=== PATIENT | female | born 1950 | race Caucasian/White ===

== ENCOUNTER 2023-06-29 07:22 | Observation (INO) ==
[2023-06-29] MEDS ORDERED: ASPIRIN CHEWABLE PO ONE (07:34)
[2023-06-29] MEDS ORDERED: CORDARONE IVP STA (07:34)
[2023-06-29 07:46] LABS: BASOPHILS % (AUTO) 0.5 % (0.0-3.0); EOSINOPHILS % (AUTO) 0.1 % (0.0-7.0); HEMATOCRIT 38.8 % (37.0-47.0); HEMOGLOBIN 12.7 g/dl (12.0-16.0); IMMATURE GRANULOCYTE % (AUTO) 0.2 % (0.0-5.0); LYMPHOCYTES # (AUTO) 0.9 K/uL (0.60-3.4); LYMPHOCYTES % (AUTO) 9.7 (10.0-50.0); MEAN CORPUSCULAR HEMOGLOBIN 29.8 pg (27.0-31.0); MEAN CORPUSCULAR HGB CONC 32.7 (31.8-35.4); MEAN CORPUSCULAR VOLUME 91.1 fl (81.0-99.0); MONOCYTES # (AUTO) 1.1 K/uL (0.4-2.0); MONOCYTES % (AUTO) 12.4 (0-10); NEUTROPHILS # (AUTO) 6.9 K/ul (2.0-6.9); NEUTROPHILS % (AUTO) 77.1 % (42.2-75.2); PLATELET COUNT 216 10^3/uL (140-440); RDW COEFFICIENT OF VARIATION 12.8 % (11.6-14.8); RED BLOOD COUNT 4.26 10^6/ul (4.20-5.40); WHITE BLOOD COUNT 8.88 K/ul (4.6-10.2)
--- NOTE | 2023-06-29 07:58 | ED.PDOC ---
General ED Provider: Dr. JUSTEN ESPINOZA MD Chief Complaint: Palpitations Stated Complaint: CC: Palpitations. Had cold symptoms in the past day with temp of 100, ? chills, bad headaches and nasal congestion. No sore throat. Took some cold decongestant medicine and woke up at 0200 with intermittent palpitations . No chest pain. Cough is mild and non-productive. No SOB. KIDD much better now. No Flu and COVID vaccine. had R carotid surgery in the past year or so on the R side, with L side < 50%. Hx of remote SVT but no formal testing. She is on Plavix after the carotid surgery. Had stress test and heart cath maybe 20 years ago and was told "she had the heart of a 15 yo". Time Seen by Provider: 06/29/23 07:25 Mode of Arrival: Walk-In Information Source: Patient Exam Limitations: No limitations Primary Care Provider: RIGOBERTO GARDNER Referred to ED by: Other (self) Nursing and Triage Documentation Reviewed and Agree: Yes What is Opioid Naive?: *Opioid Naive implies the patient is not already taking opioids or not chronically receiving opioids on a daily basis. *PRN dosing is not "usually" associated with tolerance. *Patients are at higher risk of over-sedation and aspiration. What is Opioid Tolerant?: *Opioid Tolerance implies less than the expected response to an opioid. *Acquired tolerance is defined by the patient taking 60mg of oral morphine daily (or equianalgesic dose of another opioid) for 1 week or more. *Often associated with chronic pain. *May take more than usual dose to achieve desired pain control. Review of Systems Review Of Systems Constitutional: Reports Chills and Fever Eyes: Reports No symptoms and Photophobia Ears, Nose, Mouth, Throat: Reports Nose discharge; Denies Ear pain, Ear discharge, Throat pain or Throat swelling Respiratory: Reports Cough; Denies Shortness of Breath or Wheezing Cardiac: Reports Irregular heart rate and Palpitations; Denies Syncope GI: Reports No symptoms : Reports No symptoms Musculoskeletal: Reports No symptoms Skin: Reports No symptoms Neurological: Reports Headache Endocrine: Reports No symptoms [facility] Medical History (Updated 06/29/23 @ 09:57 by JUSTEN ESPINOZA MD) Cataract H26.9 - Unspecified cataract (ICD-10) Elevated cholesterol with elevated triglycerides E78.2 - Mixed hyperlipidemia (ICD-10) Family History (Updated 10/17/20 @ 08:43 by ELISABETH VELASQUEZ) Mother Cancer FATHER Cancer Surgical History (Updated 10/17/20 @ 08:51 by AUSTIN LOTT) History of cataract surgery Z98.49 - Cataract extraction status, unspecified eye (ICD-10) Female Reproductive History Menstrual Hx Hysterectomy: No Hx Tubal Ligation: No Physical Exam Physical Exam Appearance: Reports Ill-appearing Ill-appearing: Mild Pain Distress: None Eyes: Reports BRENDAN and EOMI ENT: Reports Oropharynx normal Neck: Supple Respiratory: Reports Airway patent, Breath sounds clear, Breath sounds equal and Respirations nonlabored; Denies Breath sounds diminished or Wheezes Cardiovascular: Reports Pulses normal, Irregular rhythm and Other (in and out of AFib with rate up t0 190, and NSR with PAC) GI/: Reports Soft, Nontender, No masses, Bowel sounds normal and No Organomegaly Musculoskeletal: Reports Normal strength, ROM intact, No edema and No calf tenderness Skin: Reports Warm, Dry and Normal color Neurological: Reports Sensation intact, Motor intact, Reflexes intact and Cranial nerves intact Psychiatric: Reports Affect appropriate and Mood appropriate; Denies Anxious Interpretation EKG Interpretation EKG Interpretation By: ED Physician Time of EKG #1: 07:39 Rate: Tachy Rhythm: Sinus Ectopy: PACs [place]: NL ST Segment: Other (repolarization changes) Interpretation: Sinus Tach with ectopies, LVH with ST abnormalities. Radiology Interpretation Radiology Interpretation By: Radiologist Radiology Results: Negative Exam Interpreted: CXR Physician Notification Case Discussed Physician Notified: Rigoberto Gardner Time of Notification: 08:45 Comments: Discussed case and ok to admit to hospitalist with cardiology consult Physician Notified: Wojciech Time of Notification: 08:47 Comments: Cannot consult, he is out of town. Course Course 06/29/23 07:40 06/29/23 07:40 Orders, Labs, Meds: Lab Review 06/29/23 07:40 WBC 8.88 RBC 4.26 Hgb 12.7 Hct 38.8 MCV 91.1 MCH 29.8 MCHC 32.7 RDW Coeff of Sonido 12.8 Plt Count 216 Immature Gran % (Auto) 0.2 Neut % (Auto) 77.1 H Lymph % (Auto) 9.7 L [place] % (Auto) 12.4 H Eos % (Auto) 0.1 Baso % (Auto) 0.5 Neut # (Auto) 6.9 Lymph # (Auto) 0.9 [place] # (Auto) 1.1 Eos # (Auto) 0.0 Baso # (Auto) 0.0 Immature Gran # (Auto) 0.0 Sodium 136.3 Potassium 4.13 Chloride 103.1 Carbon Dioxide 26.1 Anion Gap 11.23 BUN 13.3 Creatinine 0.84 Estimated GFR (MDRD) 66.00 BUN/Creatinine Ratio 15.83 Glucose 133.7 H Calcium 8.90 Magnesium 1.75 Total Bilirubin 0.56 AST 33.9 ALT 30.1 Alkaline Phosphatase 99.1 Troponin I < 0.012 Total Protein 7.52 Albumin 4.31 Globulin 3.21 Albumin/Globulin Ratio 1.34 TSH 0.888 Influ A Molecular Assay Negative by naat Influ B Molecular Assay Negative by naat SARS CoV-2 RNA Rapid PAT Positive H Orders Category Date Time Status ADMIT OBSERVATION [PLACE PATIENT OBSERVATION] .TO ADMISSION 06/29/23 09:53 Active MEDSURG (MONITORED BED) ADMIT OBSERVATION [PLACE PATIENT OBSERVATION] .TO ADMISSION 06/29/23 09:57 Active MEDSURG (MONITORED BED) EKG-(ED ONLY) Stat CARDIO 06/29/23 07:34 Completed IV ACCESS ONCE CARE 06/29/23 07:34 Active TELEMETRY MONITORING TELE CARE 06/29/23 09:53 Active TELEMETRY MONITORING TELE CARE 06/29/23 09:58 Active CBC W/ AUTO DIFF Stat LAB 06/29/23 07:40 Completed CMP [COMPREHENSIVE METABOLIC PANEL] Stat LAB 06/29/23 07:40 Completed COVID [SARS COV-2 RNA RAPID PAT] Stat LAB 06/29/23 07:40 Completed FLU A & B MOLECULAR [FLU A/B MOLECULAR] Stat LAB 06/29/23 07:40 Completed MAGNESIUM Stat LAB 06/29/23 07:40 Completed TROPONIN I Stat LAB 06/29/23 07:40 Completed TSH [THYROID STIMULATING HORMONE] Stat LAB 06/29/23 07:40 Completed Amiodarone HCl [Cordarone] Meds 06/29/23 07:34 Discontinued 150 mg IVP ONCE STA Amiodarone HCl [Cordarone] 900 mg Meds 06/29/23 08:10 Active Sodium Chloride 0.9% [Sodium Chloride] 500 ml IV TITRATION Amiodarone HCl [Cordarone] 900 mg Meds 06/29/23 08:30 Discontinued Sodium Chloride 0.9% [Sodium Chloride] 500 ml IV TITRATION Apixaban [Eliquis] Meds 06/29/23 10:00 Ordered 5 mg PO BID Aspirin [Aspirin Chewable] Meds 06/29/23 07:34 Discontinued 324 mg PO ONCE ONE Dexamethasone [Decadron] Meds 06/29/23 09:57 Discontinued 6 mg PO ONCE ONE Metoprolol Succinate [Toprol Xl] Meds 06/29/23 09:52 Once 50 mg PO ONCE ONE CHEST, 1V AP ONLY Stat RADS 06/29/23 07:34 Completed Medications Generic Name Dose Route Start Last Admin Trade Name Freq PRN Reason Stop Dose Admin Amiodarone HCl 900 mg/ Sodium 518 mls @ 34.533 mls/hr 06/29/23 08:10 06/29/23 08:22 Chloride IV 1 mg/min TITRATION PALMER 33.3 mls/hr Administration Protocol 1 MG/MIN Metoprolol Succinate 50 mg 06/29/23 09:52 Metoprolol Succinate 50 Mg Tab.Er.24h PO 06/29/23 09:53 ONCE ONE Discontinued Medications Generic Name Dose Route Start Last Admin Trade Name Freq PRN Reason Stop Dose Admin Amiodarone HCl 150 mg 06/29/23 07:34 06/29/23 07:42 Amiodarone 150 Mg/3 Ml Sdv IVP 06/29/23 07:35 150 mg ONCE STA Administration Aspirin 324 mg 06/29/23 07:34 06/29/23 07:41 Aspirin 81 Mg Tab.Chew PO 06/29/23 07:35 324 mg ONCE ONE Administration Dexamethasone 6 mg 06/29/23 09:57 Dexamethasone 2 Mg Tablet PO 06/29/23 09:58 ONCE ONE Amiodarone HCl 900 mg/ Sodium 518 mls @ 34.533 mls/hr 06/29/23 08:30 Chloride IV TITRATION PALMER Protocol 1 MG/MIN Vital Signs: Temp Pulse Resp BP Pulse Ox 06/29/23 07:25 98.6 F 59 L 20 145/82 H 96 ANYA Risk Score ANYA Risk Score: Risk Score Odds of by 30D 0 0.1 (0.1-0.2) 1 0.3 (0.2-0.3) 2 0.4 (0.3-0.5) 3 0.7 (0.6-0.9) 4 1.2 (1.0-1.5) 5 2.2 (1.9-2.6) 6 3.0 (2.5-3.6) 7 4.8 (3.8-6.1) Discharge Plan Discharge Patient Disposition: PLACED OBSERVATION Discharge Problem: COVID-19, Atrial fibrillation with rapid ventricular response Did you review [place] [employer] for ALL controlled substances?: Not Applicable ED Provider: JUSTEN ESPINOZA Condition: Stable Physician Progress Note: Time is 0851. On amiodarone drip after bolus of 150 mg. Remains in NSR. COVID positive. Will probably have to transfer as our signal tester is out of town during the holiday Time is 0955. Remain in NSR since the amiodarone. No beds at both [facility]. Lennox Velasquez was kind enough to admit here. Wojciech can be reach on his cell phone []
[2023-06-29 07:59] LABS: ALANINE AMINOTRANSFERASE 30.1 U/L (0-35); ALBUMIN 4.31 g/dL (3.5-5.0); ALKALINE PHOSPHATASE 99.1 U/L (53-141); ASPARTATE AMINO TRANSFERASE 33.9 U/L (14-36); BILIRUBIN,TOTAL 0.56 mg/dL (0.2-1.3); BLOOD UREA NITROGEN 13.3 mg/dL (7-17); CARBON DIOXIDE 26.1 mmol/L (22-30.0); CHLORIDE 103.1 mmol/L (98-107); CREATININE 0.84 mg/dL (0.60-1.30); GLUCOSE 133.7 mg/dL (74-106); MAGNESIUM 1.75 mg/dL (1.6-2.3); POTASSIUM 4.13 mmol/L (3.5-5.1); SODIUM 136.3 mmol/L (134.5-145); TOTAL PROTEIN 7.52 g/dL (6.3-8.2)
[2023-06-29] MEDS ORDERED: CORDARONE IV SCH ×2 (08:10→08:30)
[2023-06-29] MEDS ORDERED: SODIUM CHLORIDE IV SCH ×2 (08:10→08:30)
--- NOTE | 2023-06-29 08:11 | DI ---
EXAM: SINGLE VIEW CHEST. HISTORY: Palpitation, chest pain COMPARISON: None. FINDINGS: The heart is normal in size. Pulmonary vascularity is within normal limits. No focal airs pace opacity or pleural effusion is seen. Mild right apical pleural thickening is seen. Osseous str uctures are unremarkable. IMPRESSION: No acute cardiopulmonary findings.
[2023-06-29 08:12] LABS: TROPONIN I < 0.012 ng/ml (0.0000-0.120)
[2023-06-29 08:28] LABS: MOLECULAR FLU A NEGATIVE BY NAAT (NEGATIVE); MOLECULAR FLU B NEGATIVE BY NAAT (NEGATIVE)
[2023-06-29 08:29] LABS: SARS COV-2 RNA RAPID NAAT POSITIVE (NEGATIVE); THYROID STIMULATING HORMONE 0.888 uIU/L (0.465-4.68)
[2023-06-29] MEDS ORDERED: TOPROL XL PO ONE (09:52)
[2023-06-29] MEDS ORDERED: DECADRON PO ONE (09:57)
[2023-06-29] MEDS ORDERED: TYLENOL PO PRN (10:37)
[2023-06-29] MEDS ORDERED: ROBITUSSIN DM SYRUP PO PRN (10:47)
[2023-06-29 10:51] VITALS: BMI 23.5
--- NOTE | 2023-06-29 10:59 | PCM ---
Date of Service Date Seen by Provider: 06/29/23 Time Seen by Provider: 10:40 Admit Day/Time Admission Date: 06/29/23 Admission Time: 09:15 Reason for Admission Chief Complaint: COVID; SVT Hospital Provider Hospital Provider: SHAN KRISHNAMURTHY, [facility] Primary Care Physician Primary Care Physician: GREGORY GARDNER History of Present Illness History of Present Illness: 73 yo female presented to the ER with complaints of palpitations. Patient states that she started having them this morning and continued to worsen. Denies any sob, chest pain, or dizziness associated. Also reports she has had a cough and congestion since yesterday. She was found to be covid positive. Denies any fever, chills, N/V/D. In ER, patient had episodes of A fib RVR rate up to 180s. She was given amiodarone bolus and then started on gtt. Converted to NSR shortly after bolus was given. Patient reports no prior history of Afib or SVT. Case Discussed With Case Discussed With: Patient's case was discussed with the ER Physicians, Dr. Jacob. [facility] Medical History Hypothyroidism E03.9 - Hypothyroidism, unspecified (ICD-10) Cataract H26.9 - Unspecified cataract (ICD-10) Elevated cholesterol with elevated triglycerides E78.2 - Mixed hyperlipidemia (ICD-10) Surgical History H/O endarterectomy Z98.890 - Other specified postprocedural states (ICD-10) History of cataract surgery Z98.49 - Cataract extraction status, unspecified eye (ICD-10) Family History Mother Cancer FATHER Cancer Social History Smoking and tobacco status: Former smoker Alcohol intake: never Allergies Allergies Allergy/AdvReac Type Severity Reaction Status Date / Time No Known Allergies Allergy Verified 06/29/23 07:30 Current Medications Home Medications levothyroxine 50 mcg tablet (Synthroid) 50 mcg PO DAILY 01/06/16 [History Confirmed 06/29/23 Last Taken Unknown] aspirin 81 mg tablet,delayed release (Adult Low Dose Aspirin) 81 mg PO DAILY 06/29/23 [History Confirmed 06/29/23 Last Taken Unknown] atorvastatin 40 mg tablet 40 mg PO BEDTIME 06/29/23 [History Confirmed 06/29/23 Last Taken Unknown] clopidogrel 75 mg tablet (Plavix) 75 mg PO DAILY 06/29/23 [History Confirmed 06/29/23 Last Taken Unknown] Home Acetaminophen (Acetaminophen 325 Mg Tablet) 650 mg PO Q4H PRN PRN Reason: Mild Pain Last Admin: 06/29/23 11:14 Dose: 650 mg Apixaban (Apixaban 5 Mg Tab) 5 mg PO BID PALMER Last Admin: 06/29/23 11:14 Dose: 5 mg Guaifenesin/Dextromethorphan (Guaifenesin/Dextromethorphan 200/20 Mg/10 Ml Cup) 10 ml PO Q4H PRN PRN Reason: Cough Amiodarone HCl 900 mg/ Sodium (Chloride) 518 mls @ 34.533 mls/hr IV TITRATION PALMER; Protocol Last Admin: 06/29/23 08:22 Dose: 1 mg/min, 33.3 mls/hr Discontinued Medications Amiodarone HCl (Amiodarone 150 Mg/3 Ml Sdv) 150 mg IVP ONCE STA Stop: 06/29/23 07:35 Last Admin: 06/29/23 07:42 Dose: 150 mg Aspirin (Aspirin 81 Mg Tab.Chew) 324 mg PO ONCE ONE Stop: 06/29/23 07:35 Last Admin: 06/29/23 07:41 Dose: 324 mg Dexamethasone (Dexamethasone 2 Mg Tablet) 6 mg PO ONCE ONE Stop: 06/29/23 09:58 Last Admin: 06/29/23 10:34 Dose: 6 mg Amiodarone HCl 900 mg/ Sodium (Chloride) 518 mls @ 34.533 mls/hr IV TITRATION [facility]; Protocol Metoprolol Succinate (Metoprolol Succinate 50 Mg Tab.Er.24h) 50 mg PO ONCE ONE Stop: 06/29/23 09:53 Last Admin: 06/29/23 11:14 Dose: 50 mg Opioid Naive vs. Tolerant Does Patient Take Opioids?: No Is Patient Opioid Naive?: Yes What is Opioid Naive?: *Opioid Naive implies the patient is not already taking opioids or not chronically receiving opioids on a daily basis. *PRN dosing is not "usually" associated with tolerance. *Patients are at higher risk of over-sedation and aspiration. Is Patient Opioid Tolerant?: No What is Opioid Tolerant?: *Opioid Tolerance implies less than the expected response to an opioid. *Acquired tolerance is defined by the patient taking 60mg of oral morphine daily (or equianalgesic dose of another opioid) for 1 week or more. *Often associated with chronic pain. *May take more than usual dose to achieve desired pain control. Review of Systems Constitutional: Reports Fatigue and Other (Congestion) Head: Reports Normocephalic Eyes: Reports No symptoms Ears: Reports No symptoms Nose: Reports No symptoms Mouth: Reports No symptoms Throat: Reports No symptoms Cardiovascular: Reports Palpitations Respiratory: Reports Cough Gastrointestinal: Reports No symptoms Genitourinary: Reports No Symptoms Musculoskeletal: Reports No symptoms Endocrine: Reports No symptoms Hematology: Reports No symptoms Immunology: Reports No symptoms Neurological: Reports Headache Physical examination Most Recent Vital Signs: Most Recent Vital Signs Temperature 97.9 F 06/29/23 10:38 Temperature Source Oral 06/29/23 10:38 Temperature Source Infrared 06/29/23 07:25 Pulse Rate 61 06/29/23 10:38 Respiratory Rate 14 06/29/23 10:38 Blood Pressure 145/82 H 06/29/23 07:25 Blood Pressure Left Arm 131/60 06/29/23 10:38 Blood Pressure Position Supine 06/29/23 10:38 O2 Sat by Pulse Oximetry 98 06/29/23 10:38 Oxygen Delivery Method Room Air 06/29/23 10:38 Height 5 ft 2 in 06/29/23 10:38 Weight 128 lb 8 oz 06/29/23 10:38 Appearance: Positive No Apparent Distress and Alert and Oriented x3 Skin: Positive Warm, Good Turgor and Good Color HEENT: Positive Normocephalic and Atraumatic Neck: Positive Supple and Midline Trachea Chest/Lungs: Positive Symmetrical With Equal Breath Sounds, Clear to Auscultation Bilaterally and Good Air Movement all 4 Lung Griffith Heart: Positive RRR and Pulses Normal GI/: Positive Soft, Nontender, Bowel Sounds Normal and No Distention Musculoskeletal: Positive Not Examined Extremities: Positive Intact Peripheral Pulses, Stable Joints Without Laxity and Good ROM in All Joints Neurological: Positive Sensation Intact, Motor intact, Reflexes Intact, Alert, Oriented and Muscle Strength 5/5 in Upper and Lower Extremities Bilaterally Psychiatric: Positive Oriented x4 Labs This Visit Labs This Visit: Labs This Visit 06/29/23 07:40 WBC 8.88 RBC 4.26 Hgb 12.7 Hct 38.8 MCV 91.1 MCH 29.8 MCHC 32.7 RDW Coeff of Sonido 12.8 Plt Count 216 Immature Gran % (Auto) 0.2 Neut % (Auto) 77.1 H Lymph % (Auto) 9.7 L [place] % (Auto) 12.4 H Eos % (Auto) 0.1 Baso % (Auto) 0.5 Neut # (Auto) 6.9 Lymph # (Auto) 0.9 [place] # (Auto) 1.1 Eos # (Auto) 0.0 Baso # (Auto) 0.0 Immature Gran # (Auto) 0.0 Sodium 136.3 Potassium 4.13 Chloride 103.1 Carbon Dioxide 26.1 Anion Gap 11.23 BUN 13.3 Creatinine 0.84 Estimated GFR (MDRD) 66.00 BUN/Creatinine Ratio 15.83 Glucose 133.7 H Calcium 8.90 Magnesium 1.75 Total Bilirubin 0.56 AST 33.9 ALT 30.1 Alkaline Phosphatase 99.1 Troponin I < 0.012 Total Protein 7.52 Albumin 4.31 Globulin 3.21 Albumin/Globulin Ratio 1.34 TSH 0.888 Influ A Molecular Assay Negative by naat Influ B Molecular Assay Negative by naat SARS CoV-2 RNA Rapid PAT Positive H Imaging Imaging: EXAM: SINGLE VIEW CHEST. HISTORY: Palpitation, chest pain COMPARISON: None. FINDINGS: The heart is normal in size. Pulmonary vascularity is within normal limits. No focal airspace opacity or pleural effusion is seen. Mild right api miranda pleural thickening is seen. Osseous structures are unremarkable. IMPRESSION: No acute cardiopulmonary findings. Review Statement Review Statement: I have independently reviewed and interpreted the labs/EKGs/imaging that were ordered by the ER provider. I have reviewed all outside records that are available currently in our EMR including imaging/notes/labs from previous visits. Plan Plan: 1. New Onset A Fib with RVR - amiodarone gtt from ER, toprol XL 50 mg ordered, stop gtt 1 hour following admin, eliquis 5 mg BID, schedule echo outpatient upon discharge, cardiology referral by PCP 2. Covid-19 - isolation, robitussin prn for cough, mild symptoms, holding steroid for now 3. Hyperlipidemia - chronic, continue home medications 4. Hypothyroidism - chronic, continue home medications DVT Prophylaxis: Eliquis, Plavix Time Spent: Greater than 80 minutes spent with patient, 50% of the time spent with this patient was devoted to counseling and coordination of care. [facility] Plannin minutes spent discussing advance care planning. Disposition: Admit to: Med/Surg Observation DNR, CPR only Discussed Plan of Care with Dr. Glenda Jeffrey. Medications Medication Orders: Medications Ordered Category Date Time Status Acetaminophen [Tylenol] Meds 06/29/23 10:37 Active 650 mg PO Q4H PRN Amiodarone HCl [Cordarone] 900 mg Meds 06/29/23 08:10 Active Sodium Chloride 0.9% [Sodium Chloride] 500 ml IV TITRATION Apixaban [Eliquis] Meds 06/29/23 10:00 Active 5 mg PO BID Guaifenesin/Dextromethorphan [Robitussin Dm Syrup] Meds 06/29/23 10:47 Ordered 10 ml PO Q4H PRN
[2023-06-29] MEDS: ELIQUIS PO SCH ×2 (11:14→20:10)
[2023-06-29] MEDS ORDERED: PAXLOVID 2X150 MG-100 MG (EUA) PO SCH (21:00)
[2023-06-30 05:57] LABS: BASOPHILS % (AUTO) 0.1 % (0.0-3.0); HEMATOCRIT 38.8 % (37.0-47.0); HEMOGLOBIN 12.5 g/dl (12.0-16.0); IMMATURE GRANULOCYTE % (AUTO) 0.3 % (0.0-5.0); LYMPHOCYTES # (AUTO) 1.6 K/uL (0.60-3.4); MEAN CORPUSCULAR HEMOGLOBIN 29.5 pg (27.0-31.0); MEAN CORPUSCULAR HGB CONC 32.2 (31.8-35.4); MEAN CORPUSCULAR VOLUME 91.5 fl (81.0-99.0); MONOCYTES # (AUTO) 1.1 K/uL (0.4-2.0); MONOCYTES % (AUTO) 9.4 (0-10); NEUTROPHILS # (AUTO) 8.6 K/ul (2.0-6.9); NEUTROPHILS % (AUTO) 76.2 % (42.2-75.2); PLATELET COUNT 223 10^3/uL (140-440); RDW COEFFICIENT OF VARIATION 12.8 % (11.6-14.8); RED BLOOD COUNT 4.24 10^6/ul (4.20-5.40); WHITE BLOOD COUNT 11.29 K/ul (4.6-10.2)
[2023-06-30 06:15] LABS: ALANINE AMINOTRANSFERASE 29.9 U/L (0-35); ALBUMIN 4.12 g/dL (3.5-5.0); ALKALINE PHOSPHATASE 82.8 U/L (53-141); ASPARTATE AMINO TRANSFERASE 30.7 U/L (14-36); BILIRUBIN,TOTAL 0.36 mg/dL (0.2-1.3); BLOOD UREA NITROGEN 19.7 mg/dL (7-17); CALCIUM 9.18 mg/dL (8.4-10.2); CREATININE 0.79 mg/dL (0.60-1.30); GLUCOSE 129.3 mg/dL (74-106); POTASSIUM 4.35 mmol/L (3.5-5.1); SODIUM 139.4 mmol/L (134.5-145); TOTAL PROTEIN 7.14 g/dL (6.3-8.2)
[2023-06-30 06:25] LABS: CHOLESTEROL 142.6 mg/dL (0-200); HDL CHOLESTEROL 52.6 mg/dL (35-80); TRIGLYCERIDES 57.9 mg/dL (0-150)
[2023-06-30] MEDS: ELIQUIS PO SCH (08:59)
[2023-06-30 10:09] VITALS: BP 148/52; PULSE 58; RESP 16; TEMP 97.5
[2023-06-30] MEDS ORDERED: TOPROL XL PO SCH (10:30)
--- NOTE | 2023-06-30 10:34 | DCSUM ---
Admission Date Admission Date: 06/29/23 Discharge Date Discharge Date: 06/30/23 Admission Diagnosis Admission Diagnosis: 1. New Onset A Fib with RVR 2. Covid-19 Discharge Diagnosis Discharge Diagnosis: 1. SVT, resolved 2. Covid-19 3. Hyperlipidemia 4. Hypothyroidism Hospital Provider Hospital Provider: Nirav Judd PA-C, [facility] Primary Care Physician Primary Care Physician: GREGORY GARDNER Summary of History and Physical Summary of History and Physical: 73 yo female presented to the ER with complaints of palpitations. Patient states that she started having them this morning and continued to worsen. Denies any sob, chest pain, or dizziness associated. Also reports she has had a cough and congestion since yesterday. She was found to be covid positive. Denies any fever, chills, N/V/D. In ER, patient had episodes of A fib RVR rate up to 180s. She was given amiodarone bolus and then started on gtt. Converted to NSR shortly after bolus was given. Patient reports no prior history of formally diagnosed Afib or SVT. States about 20 years ago she had an episode like this that resolved on its own. Hospital Course Subjective: Patient remained in NSR while on the floor. Patient feeling at baseline. No SOB. TSH, mag, and K+ normal. Reviewed the EKG and tele strips from ER with Dr. Desiree Jeffrey. Appears to be an episode of SVT, likely precipitated by covid. Will do a low dose metoprolol due to her HR being on low end already, and a 14 day heart monitor. Results to PCP. Unable to perform echo at this time, recommend outpatient. Call pcp tomorrow morning to schedule apt. Patient agrees to plan of care. Covid isolation. Return with worsening symptoms. Appearance: Pleasant, No Apparent Distress and Alert HEENT: MMM and Supple CVS: No Murmur and Other (RRR) Abdomen: Soft and Non-Tender Respiratory: No Dyspnea Extremities: No Edema Vital Signs: Most Recent Vital Signs Temperature 97.5 F L 06/30/23 10:00 Temperature Source Oral 06/30/23 10:00 Temperature Source Infrared 06/29/23 07:25 Pulse Rate 58 L 06/30/23 10:00 Respiratory Rate 16 06/30/23 10:00 Blood Pressure 148/52 H 06/30/23 10:00 Blood Pressure Mean 84 06/30/23 10:00 Blood Pressure Left Arm 131/60 06/29/23 10:38 Blood Pressure Location Left Arm 06/30/23 10:00 Blood Pressure Position Sitting 06/30/23 10:00 O2 Sat by Pulse Oximetry 97 06/30/23 10:00 Oxygen Delivery Method Room Air 06/30/23 10:00 Height 5 ft 2 in 06/29/23 10:38 Weight 128 lb 8 oz 06/29/23 10:38 Telemetry Type Bedside Monitor 06/30/23 01:00 Telemetry Monitoring Continues 06/30/23 01:00 Telemetry Heart Rate 45 L 06/30/23 01:00 EKG OK Interval 0.14 06/30/23 01:00 EKG QRS Interval 0.08 06/30/23 01:00 Telemetry Strip Reading Belinda Lu 06/30/23 01:00 Imaging: EXAM: SINGLE VIEW CHEST. HISTORY: Palpitation, chest pain COMPARISON: None. FINDINGS: The heart is normal in size. Pulmonary vascularity is within normal limits. No focal airspace opacity or pleural effusion is seen. Mild right apical pleural thickening is seen. Osseous structures are unremarkable. IMPRESSION: No acute cardiopulmonary findings. Lab Results Last 24 Hours: 06/30/23 05:00 WBC 11.29 H RBC 4.24 Hgb 12.5 Hct 38.8 MCV 91.5 MCH 29.5 MCHC 32.2 RDW Coeff of Sonido 12.8 Plt Count 223 Immature Gran % (Auto) 0.3 Neut % (Auto) 76.2 H Lymph % (Auto) 14.0 [place] % (Auto) 9.4 Eos % (Auto) 0.0 Baso % (Auto) 0.1 Neut # (Auto) 8.6 H Lymph # (Auto) 1.6 [place] # (Auto) 1.1 Eos # (Auto) 0.0 Baso # (Auto) 0.0 Immature Gran # (Auto) 0.0 Sodium 139.4 Potassium 4.35 Chloride 105.0 Carbon Dioxide 26.0 Anion Gap 12.75 BUN 19.7 H Creatinine 0.79 Estimated GFR (MDRD) 71.00 BUN/Creatinine Ratio 24.93 Glucose 129.3 H Calcium 9.18 Magnesium 2.06 Total Bilirubin 0.36 AST 30.7 ALT 29.9 Alkaline Phosphatase 82.8 Total Protein 7.14 Albumin 4.12 Globulin 3.02 Albumin/Globulin Ratio 1.36 Triglycerides 57.9 Cholesterol 142.6 LDL Cholesterol, Calc 78 VLDL Cholesterol 12 HDL Cholesterol 52.6 Cholesterol/HDL Ratio 2.7 L Discharge Instructions Discharge Planning: Discharge Planning > [address] Desiree Jeffrey. Discharge Medications: Medications at Discharge (Home Meds & RX) levothyroxine 50 mcg tablet (Synthroid) 50 mcg PO DAILY 01/06/16 aspirin 81 mg tablet,delayed release (Adult Low Dose Aspirin) 81 mg PO DAILY 06/29/23 atorvastatin 40 mg tablet 40 mg PO BEDTIME 06/29/23 clopidogrel 75 mg tablet (Plavix) 75 mg PO DAILY 06/29/23 Discharge Plan Discharge Discharge Orders: Discharge Patient (ONCE); Ordered 06/30/23 Ordered By: NIRAV JUDD Activity Restrictions/Additional Instructions: DISCHARGE TO HOME 06/30/2023 DX: SVT, COVID COVID ISOLATION THROUGH 07/09/2023 n95 MASK MUST BE WORN IF AROUND OTHERS. 07/10/2023 FIRST DAY OFF OF ISOLATION. DIET: HEART HEALTHY ACTIVITY: TOLERATED 14 DAY MONITOR, RESULTS TO PCP PHARMACY: TUSHAR RETURN WITH WORSENING SYMPTOMS RECOMMEND OUTPATIENT ECHO Instructions: Supraventricular Tachycardia (GEN), How to Recover from COVID-19 at Home (GEN) Patient Disposition: HOME SELF-CARE Prescriptions: New metoprolol tartrate 25 mg tablet 12.5 mg PO BID Qty: 60 0RF Continued levothyroxine [Synthroid] 50 MCG tablet 50 mcg PO DAILY aspirin [Adult Low Dose Aspirin] 81 mg tablet,delayed release (DR/EC) 81 mg PO DAILY clopidogrel [Plavix] 75 mg tablet 75 mg PO DAILY atorvastatin 40 mg tablet 40 mg PO BEDTIME Did you review [place] [employer] for ALL controlled substances?: Not Applicable Discussed opioids are addictive and Narcan is available by prescription or from pharmacy.: No Condition: Stable
== END 2023-06-30 13:45 | disposition home or self-care (01) ==
LOC: ED 07:22 → SCU 07:22
PROVIDERS: ADMIT Hospitalist; ATTEND Physician Assistant
DX: E03.9 Hypothyroidism, unspecified; I48.91 Unspecified atrial fibrillation; E78.5 Hyperlipidemia, unspecified; U07.1 COVID-19